=== PATIENT | female | born 1995 | race Caucasian/White ===

== ENCOUNTER 2018-08-11 12:19 | Emergency (ER) | payer MEDICAID ==
[~2018-08-11] VITALS: Ht 160 cm; Wt 69.4 kg
[2018-08-11 12:20] VITALS: BP 117/71
[2018-08-11 13:53] LABS: APPEARANCE,URINE CLOUDY (CLEAR); BILIRUBIN,URINE NEGATIVE (NEGATIVE); BLOOD, URINE 3+ (NEGATIVE); COLOR,URINE YELLOW (YELLOW); LEUKOCYTE ESTERASE ,URINE TRACE (NEGATIVE); NITRITE, URINE NEGATIVE (NEGATIVE); PH,URINE >=9.0 (5.0-9.0); UGLUCOSE NEGATIVE (NEGATIVE)
[2018-08-11 13:59] LABS: BARBITURATE, URINE NEG. ng/ml (NEG <=200); BENZODIAZEPINE, URINE NEG. ng/mL (NEG <=200); CANNABINOID, URINE NEG. ng/mL (NEG <=50); COCAINE, URINE NEG. ng/mL (NEG <=300); OPIATE, URINE NEG. ng/mL (NEG <=2000); PHENCYCLIDINE SCREEN,URINE NEG. ng/mL (NEG <=25)
[2018-08-11] MEDS ORDERED: NACL 0.9% 1,000 ML IV ONE (14:00)
[2018-08-11] MEDS ORDERED: NACL 0.9% 1,000 ML IV SCH (14:00)
[2018-08-11] MEDS ORDERED: KETOROLAC 30 MG/ML VIAL IVP ONE (14:00)
--- NOTE | 2018-08-11 14:08 | NUR ---
Pt c/o vomiting and nausea since 3:30 this morning. No meds, no medhx. 12/05 achy pain. Breathing unlabored. Will continue to monitor.
[2018-08-11 14:41] LABS: RBC,URINE 11-20 (MOD) /HPF (0-5)
--- NOTE | 2018-08-11 14:43 | NUR ---
Pt's vital signs stable. No s/s distress. Nausea, pain 11/04. IV line established.
--- NOTE | 2018-08-11 14:46 | NUR ---
BLOOD SPECIMENS OBTAINED BY LAB.
[2018-08-11 14:57] LABS: BASOPHILS % (AUTO) 0.3 % (0.0-2.0); HEMATOCRIT 42.9 % (36-48); HEMOGLOBIN 14.3 g/dL (12.0-16.0); LYMPHOCYTES # (AUTO) 0.4 K/uL (2.5-16.5); LYMPHOCYTES % (AUTO) 3.2 % (20.5-51.1); MEAN CORPUSCULAR HEMOGLOBIN 29 pg (27-31); MEAN CORPUSCULAR HGB CONC 33 g/dL (33-37); MEAN CORPUSCULAR VOLUME 87.1 fL (80-94); MONOCYTES # (AUTO) 0.5 K/uL (0.8-1.0); MONOCYTES % (AUTO) 4.3 % (1.7-9.3); NEUTROPHILS # (AUTO) 11.5 K/uL (1.8-7.7); NEUTROPHILS % (AUTO) 92.2 % (42.2-75.2); PLATELET COUNT (AUTO) 194 K/uL (140-450); RED BLOOD CELL COUNT(AUTO) 4.93 MIL/uL (4.20-5.40); RED CELL DISTRIBUTION WIDTH 12.4 % (11.6-13.7); WHITE BLOOD COUNT (AUTO) 12.5 K/uL (4.8-10.8)
[2018-08-11 15:04] LABS: ANION GAP 15.2 (8-16); CARBON DIOXIDE 24.5 mmol/L (21-32); CREATININE 0.8 mg/dL (0.6-1.3); POTASSIUM 3.7 mmol/L (3.5-5.1)
--- NOTE | 2018-08-11 15:05 | NUR ---
US AT BEDSIDE
[2018-08-11 15:16] LABS: ALBUMIN 4.3 g/dL (3.4-5.0); TOTAL BILIRUBIN 0.5 mg/dL (0.0-1.0)
--- NOTE | 2018-08-11 16:29 | NUR ---
Pt continues to report nausea but no vomiting. Pain 4/10. Vital signs stable, no s/s of distress. Will continue to monitor.
--- NOTE | 2018-08-11 16:31 | NUR ---
ABDOMINAL PAIN DECREASED /10. NO NAUSEA/VOMITING. AWAITING DISPOSITION.
[2018-08-11] MEDS ORDERED: LEVOFLOXACIN 500 MG/D5W PREMIX 100 ML IV ONE (17:35)
[2018-08-11] MEDS ORDERED: LEVOFLOXACIN 500 MG TAB PO ONE (18:10)
[2018-08-11 18:35] VITALS: BP 119/58
--- NOTE | 2018-08-11 18:35 | NUR ---
Patient discharged with v/s stable. Written and verbal after care instructions given and explained. Patient alert, oriented and verbalized understanding of instructions. Ambulatory with steady gait. All questions addressed prior to discharge. ID band removed. Patient advised to follow up with PMD. Rx of levaquin, tramadol, BENTYL given. Patient educated on indication of medication including possible reaction and side effects. Opportunity to ask questions provided and answered. Addendum: 08/11/18 at 1837 by KAREL IV removed, catheter intact and site benign. Applied folded 4x4 gauze and tape to stop bleeding.
--- NOTE | 2018-08-12 13:34 | NUR ---
Late entry. Confirmed with RN that 1000 ml 0.9NS IV bolus ended at 1600. IV fluids at 100ml/hr of 0.9NS ended at 1830
== END 2018-08-11 18:35 | disposition home or self-care (01) ==
LOC: MED 12:19
DX: K80.50 Calculus of bile duct without cholangitis or cholecystitis without obstruction (principal)
CPT/HCPCS: 36415; 74176; 76705; 80053; 80305; 81001; 81025; 82150; 83690; 85025; 87086; 96361; 96374; 99284; J1885; J7030; Q0092

== ENCOUNTER 2020-10-06 03:29 | Emergency (ER) | payer SELFPAY ==
[~2020-10-06] VITALS: Ht 157.5 cm; Wt 78.0 kg
[2020-10-06 03:40] VITALS: BP 136/85
--- NOTE | 2020-10-06 03:46 | NUR ---
PT AMBULATORY TO BD #4
--- NOTE | 2020-10-06 03:46 | NUR ---
VISUAL ACUITY FOLLOWS: BOTH 20/13, LT 20/13, RT 20/10
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
--- NOTE | 2020-10-06 04:46 | NUR ---
DR. BARNES AT BEDSIDE FOR EXAMINATION.
--- NOTE | 2020-10-06 05:01 | NUR ---
PT. TAKEN TO CT VIA WHEELCHAIR.
--- NOTE | 2020-10-06 05:10 | NUR ---
PT. BACK FROM CT.
[2020-10-06] MEDS ORDERED: HYDROcodone/APAP 5/325 MG 1 TAB TAB PO ONE (05:45)
[2020-10-06] MEDS ORDERED: TETRACAINE HCL/PF 0.5% OPTH 4 ML BTL ONE (06:01)
[2020-10-06] MEDS ORDERED: TOMOMETER 1 DEV DEV MC ONE (06:01)
[2020-10-06] MEDS ORDERED: FLUORESCEIN OPTH STRIP 1 MG ONE (06:05)
--- NOTE | 2020-10-06 06:15 | NUR ---
DR. BARNES AT BEDSIDE FOR EXAM
--- NOTE | 2020-10-06 07:07 | NUR ---
REPORT RECEIVED FROM GUILHERME RN, TRANSFER OF CARE AT THIS TIME
[2020-10-06] MEDS ORDERED: KETO5SOL OP (07:12)
[2020-10-06] MEDS ORDERED: TOBR5SOL17 LEFT EYE (07:13)
[2020-10-06 07:34] VITALS: BP 133/77
--- NOTE | 2020-10-06 07:35 | NUR ---
Patient discharged with v/s stable. Written and verbal after care instructions ABOUT EYE CONTUSION given and explained. Patient alert, oriented and verbalized understanding of instructions. Ambulatory with steady gait. All questions addressed prior to discharge. ID band removed. Patient advised to follow up with PMD. Rx of KETOROLAC TROMETHAMINE (ACULAR 0.5% OP) AND TOBRAMYCIN (AKTOB 5ML) given. Patient educated on indication of medication including possible reaction and side effects. Opportunity to ask questions provided and answered.
[2020-10-07] MEDS ORDERED: FLUORESCEIN OPTH STRIP 1 MG OP ONE (20:25)
[2020-10-07] MEDS ORDERED: TETRACAINE HCL/PF 0.5% OPTH 4 ML BTL OP ONE (20:25)
== END 2020-10-06 07:35 | disposition home or self-care (01) ==
LOC: MED 03:29
DX: S05.92XA Unspecified injury of left eye and orbit, initial encounter (principal); W21.02XA Struck by soccer ball, initial encounter; Y93.89 Activity, other specified; Y92.89 Other specified places as the place of occurrence of the external cause; Y99.8 Other external cause status
CPT/HCPCS: 70450; 70480; 81025; 99285

== ENCOUNTER 2022-03-20 05:25 | Emergency (ER) | payer OTHER ==
[~2022-03-20] VITALS: Ht 157.5 cm; Wt 74.8 kg
[~2022-03-20 05:25] MED LIST: KETO5SOL OP; TOBR5SOL17 LEFT EYE
[2022-03-20 05:26] VITALS: BP 112/68
--- NOTE | 2022-03-20 05:33 | NUR ---
PT TAKEN TO BED 8
--- NOTE | 2022-03-20 05:51 | NUR ---
26YR OLD FEMALE BIB SELF C/O NECK PAIN X2HR AGO. PT STATES SHE GOT UP FAST FROM BED WHEN PAIN OCCURRED AND HEARD A "SNAP" PT UNABLE TO MOVE NECK . SHARP PAIN LEVEL 8/10. RADIATES TO R SHOULDER AND R ARM. PT SITTING ON SIDE OF BED. UNABLE TO MOVE NECK TO RIGHT SIDE. PT IS 4WKS PREG. BED AT LOWEST POSITION NKDA NO HX
--- NOTE | 2022-03-20 06:03 | NUR ---
Dr. Aponte examining patient.
[2022-03-20] MEDS ORDERED: ACETAMINOPHEN EXTRA STRENGTH 500 MG TAB PO ONE (06:10)
--- NOTE | 2022-03-20 06:18 | NUR ---
Patient discharged with v/s stable. Written and verbal after care instructions given and explained. Patient verbalized understanding. Ambulatory with to car. All questions addressed prior to discharge. Advised to follow up with PMD.
== END 2022-03-20 06:18 | disposition home or self-care (01) ==
LOC: MED 05:25
DX: O26.891 Other specified pregnancy related conditions, first trimester (principal); M62.830 Muscle spasm of back; Z79.2 Long term (current) use of antibiotics; Z79.899 Other long term (current) drug therapy; Z3A.01 Less than 8 weeks gestation of pregnancy
CPT/HCPCS: 99282

== ENCOUNTER 2022-05-08 14:58 | Emergency (ER) | payer OTHER ==
[~2022-05-08] VITALS: Ht 157.5 cm; Wt 75.9 kg
[2022-05-08 15:13] VITALS: BP 134/79
--- NOTE | 2022-05-08 15:19 | NUR ---
26 Y/O FEMALE C/O LLQ ABDOMINAL PAIN RADIATING BELOW BELLY BUTTON X2.5 WEEKS. PT IS APPROX 8 WEEKS . LMP 02/11/22. +N/V. DENIES VAGINAL BLEEDING/DYSURIA. PT WENT TO CLINIC LAST FRIDAY AND WAS TOLD SHE NEEDED AN ULTRASOUND, APPT NEXT WEEK. PT REPORTS PAIN IS WORSENING. PT DENIES TAKING ANYTHING FOR PAIN AT HOME. G2T1L1- NO COMPLICATIONS. PT A/O X4 WITH EVEN AND UNLABORED RESPIRATIONS. PMH:DENIES NKDA MEDS:PRENATALS
[2022-05-08 15:35] LABS: APPEARANCE,URINE CLEAR (CLEAR); BILIRUBIN,URINE NEGATIVE (NEGATIVE); BLOOD, URINE NEGATIVE (NEGATIVE); COLOR,URINE YELLOW (YELLOW); LEUKOCYTE ESTERASE ,URINE 3+ (NEGATIVE); NITRITE, URINE NEGATIVE (NEGATIVE); UGLUCOSE NEGATIVE (NEGATIVE)
[2022-05-08 15:54] LABS: BASOPHILS # (AUTO) 0.1 K/uL (0.00-0.22); BASOPHILS % (AUTO) 0.8 % (0.0-2.0); EOSINOPHILS # (AUTO) 0.1 K/uL (0-0.4); EOSINOPHILS % (AUTO) 1.5 % (0.0-4.0); HEMATOCRIT 34.4 % (36-48); HEMOGLOBIN 12.2 g/dL (12.0-16.0); LYMPHOCYTES # (AUTO) 2.1 K/uL (2.5-16.5); MEAN CORPUSCULAR HEMOGLOBIN 29 pg (27-31); MEAN CORPUSCULAR HGB CONC 36 g/dL (33-37); MEAN CORPUSCULAR VOLUME 80.6 fL (80-94); MONOCYTES # (AUTO) 0.6 K/uL (0.8-1.0); MONOCYTES % (AUTO) 6.5 % (1.7-9.3); NEUTROPHILS # (AUTO) 5.7 K/uL (1.8-7.7); NEUTROPHILS % (AUTO) 66.2 % (42.2-75.2); PLATELET COUNT (AUTO) 248 K/uL (140-450); RED BLOOD CELL COUNT(AUTO) 4.27 MIL/uL (4.20-5.40); RED CELL DISTRIBUTION WIDTH 14.2 % (11.6-13.7); WHITE BLOOD COUNT (AUTO) 8.6 K/uL (4.8-10.8)
[2022-05-08 16:51] LABS: RBC,URINE NONE SEEN /HPF (0-5)
[2022-05-08] MEDS ORDERED: NITR100C7 PO (16:52)
--- NOTE | 2022-05-08 17:00 | NUR ---
Patient discharged with v/s stable. Written and verbal after care instructions ABOUT UTI given and explained. Patient alert, oriented and verbalized understanding of instructions. Ambulatory with steady gait. All questions addressed prior to discharge. ID band removed. Patient advised to follow up with PMD. Rx of MACROBID 100MG CAPSULE given. Patient educated on indication of medication including possible reaction and side effects. Opportunity to ask questions provided and answered.
== END 2022-05-08 17:00 | disposition home or self-care (01) ==
LOC: MED 14:58
DX: O23.41 Unspecified infection of urinary tract in pregnancy, first trimester (principal); O46.91 Antepartum hemorrhage, unspecified, first trimester; N39.0 Urinary tract infection, site not specified; Z3A.08 8 weeks gestation of pregnancy
CPT/HCPCS: 36415; 76801; 81001; 84702; 85025; 86900; 86901; 87086; 99284; Q0092

== ENCOUNTER 2023-07-22 19:58 | Emergency (ER) | payer OTHER ==
[~2023-07-22] VITALS: Ht 157.5 cm; Wt 81.6 kg
[~2023-07-22 19:58] MED LIST changes: +NITR100C7 PO; -TOBR5SOL17 LEFT EYE; +TOBR5SOL38 LEFT EYE
[2023-07-22 20:09] VITALS: BP 134/86; PULSE 91; RESP 18; TEMP 98.1; O2SAT 98
[2023-07-22 20:45] LABS: BASOPHILS # (AUTO) 0.1 K/uL (0.00-0.22); BASOPHILS % (AUTO) 1.3 % (0.0-2.0); EOSINOPHILS # (AUTO) 0.2 K/uL (0-0.4); EOSINOPHILS % (AUTO) 2.6 % (0.0-4.0); HEMATOCRIT 32.1 % (36-48); HEMOGLOBIN 11.1 g/dL (12.0-16.0); LYMPHOCYTES # (AUTO) 2.7 K/uL (2.5-16.5); LYMPHOCYTES % (AUTO) 35.7 % (20.5-51.1); MEAN CORPUSCULAR HEMOGLOBIN 30 pg (27-31); MEAN CORPUSCULAR HGB CONC 35 g/dL (33-37); MEAN CORPUSCULAR VOLUME 86.9 fL (80-94); MONOCYTES # (AUTO) 0.6 K/uL (0.8-1.0); MONOCYTES % (AUTO) 8.2 % (1.7-9.3); NEUTROPHILS # (AUTO) 3.9 K/uL (1.8-7.7); NEUTROPHILS % (AUTO) 52.2 % (42.2-75.2); PLATELET COUNT (AUTO) 226 K/uL (140-450); RED BLOOD CELL COUNT(AUTO) 3.69 MIL/uL (4.20-5.40); RED CELL DISTRIBUTION WIDTH 13.2 % (11.6-13.7); WHITE BLOOD COUNT (AUTO) 7.6 K/uL (4.8-10.8)
[2023-07-22 21:20] LABS: APPEARANCE,URINE SL CLOUDY (CLEAR); BILIRUBIN,URINE 1+ (NEGATIVE); BLOOD, URINE 3+ (NEGATIVE); LEUKOCYTE ESTERASE ,URINE TRACE (NEGATIVE); NITRITE, URINE NEGATIVE (NEGATIVE); PROTEIN,URINE 2+ (NEGATIVE); UGLUCOSE NEGATIVE (NEGATIVE)
[2023-07-22 21:23] LABS: COLOR,URINE SLIGHT BLOODY (YELLOW)
[2023-07-22 21:24] LABS: ICTOTEST NEGATIVE (NEGATIVE)
[2023-07-22 21:25] LABS: BACTERIA,URINE 1+ /HPF (None Seen); MUCUS,URINE None Seen /LPF (None Seen); RBC,URINE 11-20 (MOD) /HPF (0-5); SQUAMOUS EPITHELIAL CELL,UR 0-3 (FEW) /LPF (0-3 (FEW)); WBC,URINE 0-5 /HPF (0-5)
== END 2023-07-22 23:35 | disposition home or self-care (01) ==
LOC: MED 19:58
DX: O20.0 Threatened abortion (principal); Z3A.01 Less than 8 weeks gestation of pregnancy; Z79.899 Other long term (current) drug therapy
CPT/HCPCS: 36415; 76817; 81001; 81025; 84702; 85025; 86900; 86901; 99284; Q0092